=== PATIENT | female | born 1980 ===

== ENCOUNTER 2024-12-25 15:11 | Outpatient (REF) | payer OTHER, SELFPAY ==
[2024-12-25 18:26] LABS: MANUAL DIFF FLAG NO
[2024-12-25 18:36] LABS: Hematocrit 38.7 % (37.0-47.0); Hemoglobin 12.7 g/dl (12.0-16.0); Imm Gran Abs Auto 0.05 X10*3/uL (0.00-0.03); Imm Gran Pct Auto 0.4 % (0.0-0.4); Lymphocytes Absolute Auto 4.8 X10*3/uL (1.2-4.9); Mean Corpuscular HGB Conc 32.8 g/dl (31.0-35.0); Mean Corpuscular Hemoglobin 29.7 pg (27.0-33.0); Mean Corpuscular Volume 90.4 fL (80.0-98.0); NRBC Abs Auto 0.000 X10*3/uL (0.0-0.012); NRBC Pct Auto 0.0 /100WBC (0.0-0.2); Platelet Count 346 X10*3/uL (160-400); Red Blood Count 4.28 X10*6/uL (4.20-5.50); White Blood Count 12.1 X10*3/uL (4.8-10.8)
[2024-12-25 18:53] LABS: Alanine Aminotransferase 22 U/L (0-31); Albumin Level 4.5 g/dL (3.5-5.0); Alkaline Phosphatase 83 U/L (39-117); Anion Gap 11 (12-20); Aspartate Amino Transferase 25 U/L (5-31); Blood Urea Nitrogen 13 mg/dL (9-16); Calcium 9.8 mg/dL (8.4-10.2); Carbon Dioxide 26 mmol/L (22-29); Chloride 105 mmol/L (96-108); Cholesterol 183 mg/dL (<200); Estimated Glomerular Filt Rate > 60; HDL Cholesterol 45 mg/dL (>40); Iron 50 mcg/dL (30-160); Percent Iron Saturation 19 % (15-50); Potassium 3.8 mmol/L (3.3-5.1); Sodium 138 mmol/L (135-145); Total Iron Binding Capacity 259 mcg/dL (228-428); Total Protein 7.2 g/dL (6.5-8.0); Triglycerides 87 mg/dL (<150); Unsaturated Iron Binding 209 ug/dL
[2024-12-26 08:01] LABS: HIV Num 1 0.05 S/CO (0.00-0.99); ~HepC Num1 0.52 S/CO (0.00-0.79); ~Hepatitis C Antibody Nonreactive (Nonreactive)
== END 2024-12-25 15:12 | disposition home or self-care (01) ==
LOC: HO.CHCLDS 15:11
DX: Z00.00 Encounter for general adult medical examination without abnormal findings (principal); K62.5 Hemorrhage of anus and rectum
CPT/HCPCS: 36415; 80053; 80061; 82306; 83540; 85025; 86803; 87389

== ENCOUNTER 2024-12-26 12:36 | Outpatient (REF) | payer OTHER, SELFPAY | END 2024-12-26 12:37 | disposition home or self-care (01) | LOC: HO.CHCLNP 12:36 | DX: Z13.89 Encounter for screening for other disorder (principal) ==

== ENCOUNTER 2025-03-12 08:58 | Outpatient (REF) | payer OTHER, SELFPAY ==
--- NOTE | ~2025-03-12 | US_ITS ---
EXAMINATION: US PELVIS CLINICAL INFORMATION: LEFT SIDED PELVIC PAIN COMPARISON: None available. TECHNIQUE: Ultrasound of the pelvis is performed using both transabdominal and transvaginal transducers along with Doppler. Transvaginal imaging is performed due to inadequate visualization transabdominally. FINDINGS: Uterus: The uterus is anteverted and anteflexed and measures 10.8 x 6.4 x 7.3 cm (volume of 263.8 ml). At least three focal uterine lesion is identified (see technologist worksheet scanned into PACS): -1.7 x 1.6 x 1.7 cm -1.8 x 1.4 x 1.1 cm -1.0 x 0.9 x 0.7 cm Endometrial echo complex measures 0.8 cm in thickness. Endometrial echogenic lesions identified measure 1.9 x 1.0 x 1.1 cm and 0.9 x 0.7 x 0.8 cm. Adnexa: Right ovary measures 3.0 x 2.1 x 2.7 cm (volume of 9.1 ml). Contains a follicular cyst that measures up to 2.0 cm. Left ovary measures 2.9 x 1.5 x 2.8 cm (volume of 6.2 ml). Unremarkable appearance. Pelvis: No free fluid. US/US pelvic and transvaginal IMPRESSION: 1. Enlarged uterus containing at least three focal lesions, likely leiomyomas. 2. Endometrial lesions, the largest measuring 1.9 cm, likely polyps. Electronically signed by: Jeb Biswas MD 03/12/2025 10:42 AM [facility]
--- NOTE | ~2025-03-12 | MM_ITS ---
EXAMINATION: MM SCREENING DIGITAL BREAST TOMOSYNTHESIS, BILATERAL CLINICAL INFORMATION: Screening. Asymptomatic. COMPARISON: Prior images in another country are not retrievable. This will be considered a new baseline study. TECHNIQUE: Digital breast tomosynthesis is performed in mediolateral oblique and craniocaudal views along with computer-aided detection (CAD). Synthesized 2D images are generated from the tomosynthesis. FINDINGS: BREAST COMPOSITION: The breasts are heterogeneously dense, which may obscure small masses. BILATERAL BREASTS: No significant masses, suspicious calcifications or other abnormalities are seen in either breast. MM/MM tomosynthesis screening BI IMPRESSION: BILATERAL BREASTS: Negative, no mammographic evidence of malignancy. Normal interval follow-up is recommended in 12 months. ASSESSMENT: BI-RADS: Category 1: Negative RECOMMENDATION: Routine annual mammography screening. FOLLOW-UP: 1 year F/U This examination should not preclude the clinical evaluation of a suspicious palpable abnormality. This patient's information was entered into a reminder system with a target due date for their next mammogram. Electronically signed by: Jeb Biswas MD 03/15/2025 05:06 PM [facility]
--- OUTSIDE RECORDS SUMMARY | 2025-03-12 09:04 | XMS_ITS | Clinical Summary ---
Author Organization [employer] Address [address] [place] [address] [address] [place] [address] Care Team Providers Care Catalogue And Special Products Manager Name Role Phone Celestino Vanegas CNP Primary Care Provider [phone] Allergies No known active allergies Medications levonorgestrel-e thinyl estradiol (Aviane, Alesse, Lessina) 0.1-20 MG-MCG tabletIndication s:Irregular periods Take 1 tablet by mouth Once per day. 28 tablet 11 12/25/2024 Active Active Problems No known active problems Encounters Date Type Department Care Team Description 02/26/2025 Travel 01/31/2025 Orders Only [facility] [address] [place] [address] Celestino Vanegas CNP LLQ pain (Primary Dx) 01/30/2025 Telephone [employer] [address] [place], [place] [phone] Celestino Vanegas CNP 12/27/2024 Results Follow-Up [facility] [address] [place] [address] Celestino Vanegas CNP HIV-1/2 Antigen and Antibodies, Fourth Generation, with Reflexes, Hepatitis C Antibody with Reflex to HCV, RNA, Quantitative, Real-Time PCR, Lipid Panel, Standard, Additional followed-up results: 4 12/25/2024 2:00 PM EDT Office Visit [facility] [address] [place] [address] Celestino Vanegas CNP Encounter for screening for malignant neoplasm of colon (Primary Dx); Encounter for screening mammogram for malignant neoplasm of breast; Encounter for physical examination; Irregular periods; Rectal bleeding; Pelvic pain; Chronic left-sided low back pain with left-sided sciatica; Chronic pain of left knee; Encounter for immunization; Encounter for vaccination; LLQ pain 12/25/2024 Telephone [facility] [address] [place], [place] [phone] Celestino Vanegas CNP 12/25/2024 Travel from Last 3 Months Immunizations Immunization Administration Dates Next Due Influenza, seasonal, injectable, preservative fr ee 12/25/2024 Pfizer Covid-19 Vaccine 12+ 12/25/2024 Tdap 12/25/2024 Family History Medical History Relation Name Comments Stomach cancer Brother Relation Name Status Comments Brother Social History Tobacco Use Types Packs/Day Years Used Date Smoking Tobacco: Never Passive Smoke Exposure: Never Smokeless Tobacco: Never Tobacco Cessation:Counseling Given: Not Answered Alcohol Use Standard Drinks/Week Comments Not Currently 0 (1 standard drink = 0.6 oz pur e alcohol) Depression Answer Date Recorded Patient Health Questionnaire-9 Score 0 12/25/2024 Patient Health Questionnaire-9 Score 0 12/25/2024 Last PHQ-9: Questionnaire Data Not on file 1 Housing Stability Answer Date Recorded What is your housing situation today? I have anthony clemente 12/25/[address] you li ve. Do you have problems with any of the following? None of the above 12/25/2024 Food Insecurity Answer Date Recorded Within the past 12 months, y ou worried that your food would run out before you got money to buy more: Never True 12/25/2024 Within the past 12 months,th e food you bought just didn't last and you didn't have enough money to get more: Never True 10/2024 Transportation Answer Date Recorded In the past 12 months, has l ack of transportation kept you from medical appts, meetings, work or from getting things needed for daily living? No 12/25/2024 Utilities Answer Date Recorded In the past 12 months, has t he electric, gas, oil or water company threatened to shut off services in your home? No 12/25/2024 Depression Answer Date Recorded Patient Health Questionnaire-2 Score 0 12/25/2024 Internet Access Answer Date Recorded Internet Access Q1 Yes 12/25/2024 Internet Access Q2 Not on file 12/25/2024 Comments No Sex and Gender Information Value Date Recorded Sex Assigned at Female 12/25/2024 2:02 PM EDT Legal Sex Female 10:23 AM EDT Gender Identity Female 12/25/2024 2:02 PM EDT Sexual Orientation Straight 12/25/2024 2: 02 PM EDT Last Filed Vital Signs Vital Sign Reading Time Taken Comments Blood Pressure 126/70 12/25/2024 2:21 PM EDT Pulse 68 12/25/2024 2:21 PM EDT Temperature 37 C (98.6 F) 12/25/2024 2:21 PM EDT Respiratory Rate 12 12/25/2024 2:21 PM EDT Oxygen Saturation 100% 12/25/2024 2:21 PM EDT Inhaled Oxygen Concentration - - Weight 93 kg (205 lb) 12/25/2024 2:21 PM EDT Height 160.7 cm (5' 3.25 ) 12/25/2024 2:21 PM ED T Body Mass Index 36.03 12/25/2024 2:21 PM EDT Plan of Treatment Upcoming Encounters Date Type Department Care Team ([facility] st Contact Info) Description 03/12/2025 9:45 AM EST Office Visit [facility] [address] [place] [address] [place], [employer] SUPERVISOR [address] [place] [address] Health Maintenance Due Date Last Done Comments CT Colonography 1978 Colonoscopy 1978 Colorectal Cancer Screening 1978 FIT DNA/Cologuard 1978 FIT 1978 FOBT 1978 Sigmoidoscopy 1978 Family Planning (PISQ) 1993 Hepatitis B Vaccines (1 of 3 - 19+ 3-dose series) 1997 Pap Smear 1999 Cervical Cancer Screening 2008 HPV/Cotest 2008 Mammogram 2018 Alcohol/Substance Use Screening 12/25/2025 12/25/2024 Depression Screening 12/25/2025 12/25/2024, 12/25/2024 Disability Screening 12/25/2025 12/25/2024 SDOH Screening 12/25/2025 12/25/2024 Tobacco Screening 12/25/2025 12/25/2024 Zoster Vaccines (1 of 2) 2028 DTaP/Tdap/Td Vaccines (2 - T d or Tdap) 12/25/2034 12/25/2024 RSV Patients and Patients Aged 60 years or older (1 - 1-dose 75+ series) 2053 COVID-19 Vaccine Completed 12/25/2024, 08/15/2020, 07/25/2020 HIV Screening Completed 12/25/2024 Hepatitis C Screening Completed 12/25/2024 Influenza Vaccine Completed 12/25/2024 HIB Vaccines Aged Out No longer eligi ble based on patient's age to complete this topic HPV Vaccines Aged Out No longer eligi ble based on patient's age to complete this topic Hepatitis A Vaccines Aged Out No long er eligible based on patient's age to complete this topic IPV Vaccines Aged Out No longer eligi ble based on patient's age to complete this topic Meningococcal B Vaccine Aged Out No l onger eligible based on patient's age to complete this topic Meningococcal Vaccine Aged Out No carmelo ese eligible based on patient's age to complete this topic Pneumococcal Vaccine: Pediatrics (0 to 5 Years) and At-Risk Patients (6 to 49) Years Aged Out No longer eligible b ased on patient's age to complete this topic RSV under 20 months Aged Out No longe r eligible based on patient's age to complete this topic Rotavirus Vaccines Aged Out No longer eligible based on patient's age to complete this topic Procedures Procedure Name Priority Date/Time Associated Diagnosis Comments VITAMIN D,25-OH,TOTAL,IA Routine 12/25/2024 3:27 PM EDT Encounter for physical examination IRON AND TOTAL IRON BINDING CAPACITY Routine 12/25/2024 3:27 PM EDT Rectal bleeding COMPREHENSIVE METABOLIC PANEL Routine 12/25/2024 3:27 PM EDT Encounter for physical examination CBC WITH AUTO DIFFERENTIAL Routine 12/25/2024 3:27 PM EDT Encounter for physical examination LIPID PANEL, STANDARD Routine 12/25/2024 3:27 PM EDT Encounter for physical examination HEPATITIS C AB W/REFL TO HCV RNA, QN, PCR Routine 12/25/2024 3:27 PM EDT Encounter for physical examination HIV 1/2 ANTIGEN/ANTIBODY, FOURTH GENERATION W/RFL Routine 12/25/2024 3:27 PM EDT Encounter for physical examination from Last 3 Months Results * Vitamin D, 25-Hydroxy, Total, Immunoassay (12/25/2024 3:27 PM EDT) Pathologist [facility] Vitamin D 25-OH Total 52.6 >30 ng/mL LABS Comment: Health Based Reference Values*< 20 ng/mL [id number] ng/mL Insufficient> 30 ng/mL Sufficient*Miguel TRIPATHI. N Engl J Med. 2007;357:266-280There is no well-established upper level of normal vitamin Dlevels. Some laboratories use 50 ng/mL as an upper limit ofnormal. However, toxicity is patient-dependent and may occurat any level. Careful correlation with the patient'spresentation is necessary and, if there is concern forvitamin D toxicity, treatment should be consideredirrespective of the serum level.Care must be taken in interpreting Vitamin D results fromdifferent laboratories and methodologies. Published datademonstrated that results from patients undergoinghemodialysis may show a negative bias when tested withvarious automated 25-OH vitamin D assays when compared toLC-MS/MS.When testing samples from patients whose predominant form ofVitamin D is Vitamin D2, such as patients receiving VitaminD2 supplementation, results that are subtherapeutic shouldbe confirmed with another method such as LC-MS/MS. Blood Venous blood specimen / Unknown 12/25/2024 3:27 PM EDT 12/25/2024 6:24 PM EDT [facility] LAB BLOOD ORDERABLES Nancy dmitri Result LABS [address] [place] [phone] * (ABNORMAL) CBC auto differential (12/25/2024 3:27 PM EDT) White Blood Count 12.1(H) 4.8 - 10.8 X10*3/uL LABS Red Blood Count 4.28 4.20 - 5.50 X10*6/uL LABS Hemoglobin 12.7 12.0 - 16.0 g/dl LABS Hematocrit 38.7 37.0 - 47.0 % LABS Mean Corpuscular Volume 90.4 80.0 - 98.0 fL LABS Mean Corpuscular Hemoglobin 29.7 27.0 - 33.0 pg LABS Mean Corpuscular HGB Conc 32.8 31.0 - 35.0 g/dl LABS Red Cell Distribution Width 13.2 11.0 - 16.0 % LABS Platelet Count 346 160 - 400 X10*3/uL LABS Mean Platelet Volume 11.1 9.4 - 12.3 fL LABS Neutrophils Percent Auto 49.6 45 - 73 % LABS Imm Gran Pct Auto 0.4 0.0 - 0.4 % LABS Lymphocytes Percent Auto 39.8 20 - 40 % LABS Monocytes Percent Auto 7.1 2 - 11 % LABS Eosinophils Percent Auto 2.7 0 - 4 % LABS Basophils Percent Auto 0.4 0 - 2 % LABS NRBC Pct Auto 0.0 0.0 - 0.2 /100WBC LABS Neutrophils Absolute Auto 6.0 2.0 - 8.3 x10*3/uL LABS Imm Gran Abs Auto 0.05(H) 0.00 - 0.03 X10*3/uL LABS Lymphocytes Absolute Auto 4.8 1.2 - 4.9 X10*3/uL LABS Monocytes Absolute Auto 0.9 0.1 - 1.2 X10*3/uL LABS Eosinophils Absolute Auto 0.3 0.0 - 0.4 X10*3/uL LABS Basophils Absolute Auto 0.1 0.0 - 0.2 X10*3/uL LABS NRBC Abs Auto 0.000 0.0 - 0.012 X10*3/uL LABS Blood Venous blood specimen / Unknown 12/25/2024 3:27 PM EDT 12/25/2024 6:24 PM EDT [facility] LAB BLOOD ORDERABLES Nancy l Result Performing Organization Address [facility] Co de Phone Number LABS [address] [place] [phone] * Hepatitis C Antibody with Reflex to HCV, RNA, Quantitative, Real-Time PCR (12/25/2024 3:27 PM EDT) Hepatitis C Antibody Nonreactive Nonreactive LABS Comment:Antibodies to HCV no t detected; does not exclude early acuteHCV infection. Blood Venous blood specimen / Unknown 12/25/2024 3:27 PM EDT 12/25/2024 6:24 PM EDT [facility] LAB BLOOD ORDERABLES Nancy l Result Performing Organization Address [facility] Co de Phone Number LABS [address] [place] [phone] * Iron And Total Iron Binding Capacity (12/25/2024 3:27 PM EDT) Iron 50 30 - 160 mcg/dL LABS Total Iron Binding Capacity 259 228 - 428 mcg/dL LABS Percent Iron Saturation 19 15 - 50 % LABS Unsaturated Iron Binding 209 ug/dL LABS Blood Venous blood specimen / Unknown 12/25/2024 3:27 PM EDT 12/25/2024 6:24 PM EDT [facility] LAB BLOOD ORDERABLES Nancy l Result Performing Organization Address [facility] Co de Phone Number LABS [address] [place] [address] [phone] * HIV-1/2 Antigen and Antibodies, Fourth Generation, with Reflexes (12/25/2024 3:27 PM EDT) HIV AB/AG Nonreactive Nonreactive [facility] LABS Comment:HIV-1 p24 Ag and/or HIV-1/HIV-2 Ab not detected.A test result that is nonreactive does not exclude thepossibility of exposure to or infection with HIV-1 and/orHIV-2. Nonreactive results in this assay for individualswith prior exposure to HIV-1 and/or HIV-2 may be due toantigen and antibody levels that are below the limit ofdetection of this assay.The SureVisit HIV Ag/Ab Combo assay result andsupplemental assay results should be interpreted inconjunction with the patient's clinical presentation,history and other laboratory results. If the results areinconsistent with clinical evidence, additional testing issuggested to confirm the result. Blood Venous blood specimen / Unknown 12/25/2024 3:27 PM EDT 12/25/2024 6:24 PM EDT [facility] LAB BLOOD ORDERABLES Nancy l Result LABS [address] [place] [phone] * (ABNORMAL) Lipid Panel, Standard (12/25/2024 3:27 PM EDT) Triglycerides 87 <150 mg/dL [facility] LABS Comment:Desirable Triglyceri de: less than 150 mg/dLBorderline High Triglyceride 150-199 mg/dLHigh Triglyceride: 200-499 mg/dLVery High Triglyceride: greater than or equal to 5OO mg/dL Cholesterol 183 <200 mg/dL LABS Comment:Desirable Cholestero l: less than 200 mg/dLBorderline High Cholesterol: 200-239 mg/dLHigh Cholesterol: greater than 239 mg/dL LDL Cholesterol Calculated 121(H) <100 mg/dL LABS Comment:Desirable LDL: less than 100 mg/dLNear Optimal/Above Optimal LDL: 110- 129 mg/dLBorderline High LDL: 130-159 mg/dLHigh LDL: 160-189 mg/dLVery High LDL: greater than or equal to 190 mg/dL HDL Cholesterol 45 >40 mg/dL [facility] LABS Comment:Desirable HDL: great er than 40 mg/dL Note: This HDL assay may give artificially low results in patients with liver disease. Blood Venous blood specimen / Unknown 12/25/2024 3:27 PM EDT 12/25/2024 6:24 PM EDT Celestino Vanegas [facility] LAB BLOOD ORDERABLES Nancy rizvi Result LABS [address] [place] [phone] [phone] * (ABNORMAL) Comprehensive Metabolic Panel (12/25/2024 3:27 PM EDT) Sodium 138 135 - 145 mmol/L LABS Potassium 3.8 3.3 - 5.1 mmol/L LABS Chloride 105 96 - 108 mmol/L LABS Carbon Dioxide 26 22 - 29 mmol/L LABS Anion Gap 11(L) 12 - 20 LABS Urea Nitrogen (BUN) 13 9 - 16 mg/dL LABS Creatinine, Serum 0.75 0.5 - 1.4 mg/dL LABS Estimated Glomerular Filt Rate >60 LABS Comment:Chronic Kidney Disea se: Estimated GFR < 60 mL/min/1.18x7Baabvh Kidney Disease: Estimated GFR < 15 mL/min/1.73m2 Glucose 83 60 - 115 mg/dL LABS Calcium 9.8 8.4 - 10.2 mg/dL LABS Bilirubin, Total 0.3 0.0 - 1.0 mg/dL LABS Aspartate Amino Transferase 25 5 - 31 U/L LABS Alanine Aminotransferase 22 0 - 31 U/L LABS Total Protein 7.2 6.5 - 8.0 g/dL LABS Albumin Level 4.5 3.5 - 5.0 g/dL LABS Alkaline Phosphatase 83 39 - 117 U/L LABS Blood Venous blood specimen / Unknown 12/25/2024 3:27 PM EDT 12/25/2024 6:24 PM EDT Celestino Vanegas [employer] LAB BLOOD ORDERABLES Nancy l Result LABS [address] [place] [address] [phone] from Last [address] [place] [place] [address] Care Teams Catalogue And Special Products Manager Relationship Specialty Start Date End Date Celestino Vanegas CNP [address] [place] [phone] PCP - General Family Medicine 12/25/24
--- OUTSIDE RECORDS SUMMARY | 2025-03-12 09:04 | XMS_ITS | Clinical Summary ---
Author Organization [facility] Address [address] [place] [address] Care Team Providers Care Signaling Project Engineer Name Role Phone Ref, Hasnopcp Primary Care Provider Unavailabl e Allergies No known active allergies Medications levonorgestreL-e thinyl estrad (Aviane) 0.1-20 mg-mcg per tabletIndication s:Menstrual changes Take 1 tablet by mouth once a day. 84 tablet 3 07/31/2023 Active Active Problems No known active problems Family History Medical History Relation Name Comments Breast cancer Sister Relation Name Status Comments Sister Social History Tobacco Use Types Packs/Day Years Used Date Smoking Tobacco: Never Smokeless Tobacco: Never Tobacco Cessation:Counseling Given: Not Answered Comments No Sex and Gender Information Value Date Recorded Sex Assigned at Female 07/27/2023 12:14 PM EDT Legal Sex Female 1:39 PM EDT Gender Identity Not on file Sexual Orientation Not on file Last Filed Vital Signs Vital Sign Reading Time Taken Comments Blood Pressure 112/62 07/31/2023 2:55 PM EDT Pulse - - Temperature - - Respiratory Rate - - Oxygen Saturation - - Inhaled Oxygen Concentration - - Weight 91.2 kg (201 lb) 07/31/2023 2:55 PM EDT Height - - Body Mass Index - - Plan of Treatment Health Maintenance Due Date Last Done Comments Cologuard 1978 Colon Cancer Screening 1978 Colonoscopy 1978 FOBT / Fit Test 1978 HPV and Pap Smear 1978 Sigmoidoscopy 1978 Hepatitis B Vaccines (1 of 3 - 19+ 3-dose series) 1997 DTaP,Tdap,and Td Vaccines (1 - Tdap) 2000 Mammogram 2018 Alcohol/Substance Use Screening 03/20/2024 Depression Screening and Follow-Up 03/20/2024 Social Drivers of Health Annual Screening 03/20/2024 Influenza Vaccine (#1) 2024 COVID-19 Vaccine (3 - 2024-2 6 season) 2024 08/15/2020, 07/25/2020 Cervical Cancer Screening 01/26/2026 Pap Smear 01/26/2026 01/26/2023 HIV Screening Completed 01/26/2023 Hepatitis C Screening Completed 01/26/2023 Pneumococcal Vaccine: Pediatric (0-5 Years) and At-Risk Patients (6-50 Years) Aged Out No longer eligible based on patient's age to complete this topic Procedures * Due to [place] [employer] law, this organization might not be sharing negative HIV tests. Procedure Name Priority Date/Time Associated Diagnosis Comments HEPATITIS C ANTIBODY W/REFLEX TO HCV RNA, QUANTITATIVE PCR Routine 01/26/2023 4:20 PM EST Routine screening for STI (sexually transmitted infection) PAP Routine 01/26/2023 4:02 PM EST Cervical cancer screening from Last 3 Months or Most Recently Relevant to Health Maintenance Results * Due to [place] [employer] law, this organization might not be sharing negative HIV tests. * Hepatitis C Antibody w/Reflex to HCV RNA, Quantitative PCR (01/26/2023 4:20 PM EST) Hepatitis C Antibody NON-REACT DARWIN NON-REACT DARWIN 01/27/2023 3:44 AM EST [facility] Comment: HCV antibody was non-reactive. There is no laboratory evidence of HCV infection. In most cases, no further action is required. However, if recent HCV exposure is suspected, a test for HCV RNA (test code 91195) is suggested. For additional information please refer to http://education.[employer]/faq/ARW56n9 (This link is being provided for informational/ educational purposes only.) Blood Structure of peripheral vein / Unknown Venipuncture / Unknown 01/26/2023 4:20 PM EST 01/26/2023 4:56 PM EST Narrative [facility] - 01/27/2023 3:44 AM EST [facility] Received Date: Consuelo Shah NP LAB BLOOD ORDERABLES F inal Result [facility] [address] [facility] 3rd Floor, [place] [address], [place] [phone] [facility] [address], [place] [address], [place] [phone] * Pap (01/26/2023 4:02 PM EST) Specimen Adequacy Satisfactory for evaluation [facility] MANUAL 3 9:13 AM EST [facility] Pathologist Cytology Interpretation Negative for intraepithelial lesion or malignancy. [facility] MANUAL 3 9:13 AM EST Managed by Q [facility] at 0913 EST Comment:This is the result o f a morphological screening test with an inherent possibility of a false negative interpretation. Scrap Crusher Statement This Pap test was examined by the [facility] System, [employer], [place], [place]. This Pap test was examined in accordance with the [facility] Cytopathology Laboratory written policy, which incorporates all CLIA mandates. Current screening guidelines can be found in [place]: A Cancer Journal for Clinicians 2020;70:321-346. Current ASCCP management guidelines for abnormal Pap tests are published in the Journal Lower Genital Tract Disease Volume 2020;24:102-131. [facility] MANUAL 3 9:13 AM EST [facility] Clinical History no hx abnormal pap [facility] MANUAL 3 9:13 AM EST [facility] Resulting Agency Case was signed out at [facility], Department of Pathology, [employer] 3 CLIA [id number] [facility] MANUAL 3 9:13 AM EST [facility] Report Header Gynecologic Cytology Report Case: [id number] Authorizing Provider: Consuelo Shah NP Collected: 01/26/2023 1602 Ordering Location: [facility] Received: 01/26/2023 1758 [facility] Obstetrics and Gynecology First Screen: Carmen Isidro Specimen: Screening ThinPrep Pap, Cervix/Endocervix 9:13 AM EST [facility] Brushing Cervix uteri structure / Unknown Non-Blood Collection / Unknown 01/26/2023 4:02 PM EST 01/26/2023 5:58 PM EST [facility] Jennie Shah NP LAB PATHOLOGY/CYTOLOGY ORDERABLES Final Result [facility] [address] [place] [phone], from Last 3 Months or Most Recently Relevant to Health Maintenance Insurance [facility] Care Teams Signaling Project Engineer Relationship Specialty Start Date End Date Ref, Hasmiguel DO NOT EDIT THIS RECORD VIA PROVIDER ON THE FLY PCP - General Phlebotomy Specialist 01/02/23
== END 2025-03-12 08:59 | disposition home or self-care (01) ==
LOC: HO.MAMMO 08:58
DX: Z12.31 Encounter for screening mammogram for malignant neoplasm of breast (principal); R10.22 Pelvic and perineal pain left side
CPT/HCPCS: 76830; 76856; 77063; 77067

== ENCOUNTER → 2025-03-12 09:58 | Outpatient (BNV) | payer SELFPAY | PROVIDERS: Visit Provider Radiology Body Imaging | DX: Z12.31 Encounter for screening mammogram for malignant neoplasm of breast (principal) | CPT/HCPCS: 76856; 77063; 77067 ==